=== PATIENT | female | born 1995 | race Caucasian/White ===

== ENCOUNTER 2018-10-08 16:39 | Observation (INO) | payer MEDICAID ==
[~2018-10-08] VITALS: Ht 160 cm; Wt 66.8 kg
[2018-10-08] MEDS ORDERED: normal saline 1000ML IV soln IVB ONE (17:10)
[2018-10-08] MEDS ORDERED: ondansetron/PF 4mg/2ml inj IV ONE (17:10)
[2018-10-08] MEDS ORDERED: morphine 4 MG/ML inj SYRINge IV PRN ×4 (17:10→23:25)
[2018-10-08 17:55] LABS: BASOPHILS % (AUTO) 0.2 % (0-1); EOSINOPHILS % (AUTO) 0 % (0-6); HEMATOCRIT 44.1 % (35.0-45.0); HEMOGLOBIN 15.4 g/dl (12.0-16.0); LYMPHOCYTES # (AUTO) 0.6 X10'3 (1.1-4.8); MEAN CORPUSCULAR HEMOGLOBIN 31.9 PG (27.0-31.0); MEAN CORPUSCULAR HGB CONC 34.9 g/dL (33.0-36.5); MEAN CORPUSCULAR VOLUME 91.3 FL (78-98); MEAN PLATELET VOLUME 7.3 FL (7.4-10.4); MONOCYTES # (AUTO) 0.5 X10'3 (0-0.9); MONOCYTES % (AUTO) 3.1 % (2-12); NEUTROPHILS # (AUTO) 14.6 X10'3 (1.8-7.7); NEUTROPHILS % (AUTO) 92.7 % (42-75); PLATELET COUNT 237 X10'3 (140-440); RED BLOOD COUNT 4.83 X10'6 (4.20-5.60); RED CELL DISTRIBUTION WIDTH 12.5 % (11.5-14.5); WHITE BLOOD COUNT 15.7 X10'3 (4.5-11.0)
[2018-10-08 18:02] LABS: CLARITY,URINE SLIGHTLY CLOUDY (Clear); COLOR,URINE YELLOW (Yellow); GLUCOSE, URINE NEGATIVE (Neg); KETONES,URINE NEGATIVE (Neg); LEUKOCYTE ESTERASE ,URINE NEGATIVE (Neg); NITRITES, URINE NEGATIVE (Neg); OCCULT BLOOD,URINE LARGE (Neg); PROTEIN,URINE TRACE mg/dl (Neg); UROBILINOGEN,URINE 0.2 E.U/dL (0.2-1.0)
[2018-10-08 18:03] LABS: UA COLLECTION TYPE CLN CATCH MIDSTREAM; URINE HCG NEGATIVE (NEG)
[2018-10-08 18:16] LABS: BACTERIA,URINE 1+ /HPF (Neg); MUCUS STRANDS MODERATE /LPF (Neg); SQUAMOUS EPITHELIAL CELL,UR MODERATE /LPF (FEW); WBC,URINE 0-4 /HPF (0-4)
[2018-10-08 18:18] LABS: ALANINE AMINOTRANSFERASE 19 U/L (12-78); ALBUMIN 4.3 G/DL (3.4-5.0); ALBUMIN/GLOBULIN RATIO 1.2 (1.1-1.5); ALKALINE PHOSPHATASE 51 IU/L (46-116); ANION GAP 12 (8-16); ASPARTATE AMINO TRANSFERASE 16 U/L (10-37); BILIRUBIN,TOTAL 0.6 MG/DL (0.1-1.0); BLOOD UREA NITROGEN 11 MG/DL (7-18); BUN/CREATININE RATIO 11.7 (6.6-38.0); CALCIUM 9.4 MG/DL (8.5-10.1); CHLORIDE 104 MMOL/L (99-107); CREATININE 0.94 MG/DL (0.40-0.90); GLUCOSE 127 MG/DL (70-104); POTASSIUM 3.6 MMOL/L (3.5-5.1); SODIUM 140 MMOL/L (135-145); TOTAL CARBON DIOXIDE 23.9 MMOL/L (24-32); TOTAL PROTEIN 7.8 G/DL (6.4-8.2); eGFR 75 ML/MIN
[2018-10-08] MEDS ORDERED: iohexol 300mg/ml 100ml inj. ONE (18:18)
[2018-10-08] MEDS ORDERED: NO HOME MEDS (19:34)
[2018-10-08] MEDS ORDERED: piperacillin/tazo 3.375gm/50ml 50 ML IV ONE (19:35)
[2018-10-08] MEDS ORDERED: morphine 4 MG/ML inj SYRINge IV ONE ×2 (19:35→21:25)
[2018-10-08] MEDS ORDERED: normal saline 1000ML IV soln IV ONE (21:25)
[2018-10-08] MEDS ORDERED: ringers solution, lacted 1,000 ML IV SCH (21:56)
[2018-10-08] MEDS ORDERED: BUPIVAcaine/PF 2.5 mg/ml (0.25%) 30ml vial ONE (21:57)
[2018-10-08] MEDS ORDERED: hydrALAZINE 20mg/ml inj. IV PRN (22:00)
[2018-10-08] MEDS ORDERED: fentaNYL/PF 50MCG/1 ML 2ML syringe IV PRN ×2 (22:00)
[2018-10-08] MEDS ORDERED: labetalol 20mg/4ml (5mg/ml) syringe IV PRN (22:00)
[2018-10-08] MEDS ORDERED: ondansetron/PF 4mg/2ml inj IV PRN ×2 (22:00→23:20)
[2018-10-08] MEDS ORDERED: sevoflurane 250ml liquid IH ONE (22:25)
[2018-10-08] MEDS ORDERED: glycopyrrolate 0.2mg/ml inj ONE (22:25)
[2018-10-08] MEDS ORDERED: neostigmine methylsulfate 1 MG/ML 10ml vial ONE (22:25)
[2018-10-08] MEDS ORDERED: dexamethasone sod phosphate 10mg/ml inj ONE (22:25)
[2018-10-08] MEDS ORDERED: midazolam 2 mg/2 ml injection ONE ×2 (22:26)
[2018-10-08] MEDS ORDERED: morphine 10mg/ml inj. ONE (22:27)
[2018-10-08] MEDS ORDERED: ondansetron/PF 4mg/2ml inj ONE (22:35)
[2018-10-08] MEDS ORDERED: rocuronium 10mg/ml inj IV ONE (22:35)
[2018-10-08] MEDS ORDERED: propofol inj 20 ML IV ONE (22:35)
[2018-10-08] MEDS ORDERED: LIDOcaine 1%/PF 5ML 10 MG/ML VIAL ONE (22:35)
[2018-10-08] MEDS ORDERED: HYDROcodone/acetaminophen 10/325mg tab PO PRN (23:20)
[2018-10-08 23:24] VITALS: BP 115/73
--- NOTE | 2018-10-08 23:24 | NUR ---
Received from OR via , accompanied by Anesthesiologist and report given by Anesthesiolgist. PATIENT ARRIVED ON HOSPITAL BED, VSS CHARTED 02 SAT 100 10L MASK. ABD SOFT TO TOUCH, LAP SITES WITH BANDAGES, CDI. PIV 20 GAUGE LEFT FA IVF INFUSING ORDERED.
[2018-10-08 23:34] VITALS: BP 119/68
[2018-10-08 23:44] VITALS: BP 125/88
[2018-10-08 23:54] VITALS: BP 122/62
--- NOTE | 2018-10-08 23:54 | NUR ---
PATIENT DC CRITERIA MET, REPORT CALLED TO MARSHALL WINTER ON SURG, ALL QUESTIONS AND CONCERNS ADDRESSED. ABD SOT TO TOUCH, LAP SITE CDI. VSS CHARTED, TEMP 36.5. TRANSFER TO 349B
[2018-10-09] VITALS (11 sets, daily range): BP systolic 101–142; BP diastolic 55–86
[2018-10-09] MEDS: potassium CL 20mEq in D5-1/2NS 1,000 ML IV SCH ×4 (00:38→20:18)
[2018-10-09] MEDS: ketorolac trometh. 30mg/ml inj. IV PRN ×2 (00:38→18:53)
[2018-10-09] MEDS: piperacillin/tazo 3.375gm/50ml 50 ML IV SCH ×4 (01:04→20:17)
--- NOTE | 2018-10-09 06:31 | NUR ---
Problems reprioritized. Patient report given, questions answered & plan of care reviewed with Brenda WINTER.
--- NOTE | 2018-10-09 06:35 | NUR ---
Patient in room [facility] 349. I have received report from MAGGY Fox and had the opportunity to ask questions and assume patient care.
--- NOTE | 2018-10-09 10:30 | NUR ---
Dr. Farr rounded. Patient isn't passing gas; has tolerated clears well. Okay to increase her diet and probably home tomorrow.
--- NOTE | 2018-10-09 18:30 | NUR ---
Problems reprioritized. Patient report given, questions answered & plan of care reviewed with MAGGY Wallace.
[2018-10-10] VITALS: BP 103/52
--- NOTE | 2018-10-10 06:24 | NUR ---
Patient in room [facility] 345. I have received report from MAGGY MOSLEY and had the opportunity to ask questions and assume patient care.
--- NOTE | 2018-10-10 06:27 | NUR ---
Problems reprioritized. Patient report given, questions answered & plan of care reviewed with Arian WINTER. Addendum: 10/10/18 at 0628 by Madison Tong RN Amended: Links added.
[2018-10-10 07:00] VITALS: BP 109/67
[2018-10-10] MEDS: potassium CL 20mEq in D5-1/2NS 1,000 ML IV SCH (07:18)
[2018-10-10] MEDS: piperacillin/tazo 3.375gm/50ml 50 ML IV SCH (08:25)
[2018-10-10 11:00] VITALS: BP 121/73
--- NOTE | 2018-10-10 12:06 | NUR ---
DISCUSSED WITH PATIENT DISCHARGE INSTRUCTIONS AND PATIENT VERBALIZES UNDERSTANDING OF TEACHING. PATIENT'S MOTHER IS ALSO AT BEDSIDE. PATIENT IS ALERT AND ORIENTED AND IN NO APPARENT DISTRESS AND DC'D WITH ALL PERSONAL BELONGINGS.
== END 2018-10-10 12:15 | disposition home or self-care (01) ==
LOC: ER 16:42 → SUR 3N 23:59
PROVIDERS: ADMIT Surgery; ATTEND Surgery
DX: K35.80 Unspecified acute appendicitis (principal)
CPT/HCPCS: 36415; 44970; 74177; 80053; 81001; 81025; 85025; 87070; 96365; 96366; 96375; 96376; 99284; G0378; J1100; J1885; J2001; J2250; J2270; J2405; J2543; J2704; J2710; J3490; J7120; Q9967; A4315; A7000